=== PATIENT | female | born 2000 | race Caucasian/White ===

== ENCOUNTER 2022-09-16 10:41 | Emergency (ER) | payer BC ==
[2022-09-16 14:39] LABS: CARBON DIOXIDE,CO2 24.4 mmol/L (21.0-32.0); POTASSIUM,K 3.6 mmol/L (3.5-5.1)
== END 2022-09-16 16:37 | disposition home or self-care (01) ==
LOC: MW.ED 10:41
DX: O03.9 Complete or unspecified spontaneous abortion without complication (principal)
CPT/HCPCS: 36415; 76817; 76817-26; 80053; 84702; 85025; 85610; 86850; 86900; 86901; 99284; J2790

== ENCOUNTER 2023-08-08 12:23 | Inpatient (IN) | payer BC ==
[2023-08-08] MEDS ORDERED: Misoprostol 200 MCG Tab PO PRN (12:29)
[2023-08-08] MEDS ORDERED: Tranexamic Acid IN NACL,ISO-OS 1,000 MG in Premix Bag 1 BAG IV PRN ×2 (12:29)
[2023-08-08] MEDS ORDERED: Terbutaline 1 MG/ML SDV SUBCUT PRN (12:29)
[2023-08-08] MEDS ORDERED: Sodium Chloride 0.9% 10 ML Syringe FLUSH PRN (12:29)
[2023-08-08] MEDS ORDERED: Methylergonovine 0.2 MG/1 ML Amp IM PRN (12:29)
[2023-08-08] MEDS ORDERED: Water For Irrigation,Sterile 1,000 ML Container IRR PRN (12:29)
[2023-08-08] MEDS ORDERED: Lidocaine 1% 50 ML MDV INJECT PRN (12:29)
[2023-08-08] MEDS ORDERED: Sodium Chloride 0.9% 2.5 ML Syringe FLUSH PRN (12:29)
[2023-08-08] MEDS ORDERED: Ondansetron 4 MG/2 ML SDV IVPUSH PRN (12:29)
[2023-08-08] MEDS ORDERED: Carboprost Tromethamine 250 MCG/1 mL Vial IM PRN (12:29)
[2023-08-08] MEDS ORDERED: Sodium Chloride 0.9% 20 ML SDV IV PRN (12:29)
[2023-08-08] MEDS ORDERED: Oxytocin/0.9 % Sodium Chloride 30 UNIT/500 ML BAG IV SCH ×2 (12:30)
[2023-08-08] MEDS ORDERED: Insulin Regular in 0.9 % NACL 100 ML IV SCH (12:45)
[2023-08-08] MEDS ORDERED: Dextrose 5%-Lactated Ringers 1,000 ML IV SCH (12:45)
[2023-08-08] MEDS ORDERED: ePHEDrine 50 MG/ML SDV IVPUSH PRN ×2 (12:51)
[2023-08-08] MEDS ORDERED: Phenylephrine HCl 0.5 MG/5 ML AMP IVPUSH PRN (12:51)
[2023-08-08 12:54] LABS: HEMATOCRIT 40.3 % (36.0-46.0); HEMOGLOBIN 13.6 g/dL (12.0-16.0); MEAN CORPUSCULAR HEMOGLOBIN 29.9 pg (27.0-32.0); MEAN CORPUSCULAR HGB CONC 33.7 g/dL (31.0-37.0); MEAN CORPUSCULAR VOLUME 88.6 fL (80.0-98.0); MEAN PLATELET VOLUME 13.3 fL (7.40-12.00); RED BLOOD CELL COUNT 4.55 M/uL (4.30-5.90); WHITE BLOOD CELL COUNT,WBC 7.96 K/uL (4.0-11.0)
[2023-08-08] MEDS ORDERED: Ropivacaine HCl/PF 400 MG in Premix Bag 1 BAG EPIDUR SCH (13:00)
[2023-08-08] MEDS: Misoprostol 25 MCG (1/4 of 100 MCG) Tab VAG PRN ×3 (13:09→23:30)
[2023-08-09] MEDS: Lactated Ringers 1,000 ML IV SCH ×2 (08:03→12:21)
[2023-08-09] MEDS ORDERED: Methylergonovine 0.2 MG/1 ML Amp IM PRN (15:29)
[2023-08-09] MEDS ORDERED: Acetaminophen 500 MG Tab PO PRN (15:29)
[2023-08-09] MEDS ORDERED: Lanolin 100% Cream 7 GM Tube TOP PRN (15:29)
[2023-08-09] MEDS ORDERED: Tranexamic Acid IN NACL,ISO-OS 1,000 MG in Premix Bag 1 BAG IV PRN ×2 (15:29)
[2023-08-09] MEDS ORDERED: Bisacodyl 10 MG Supp RECTAL PRN (15:29)
[2023-08-09] MEDS ORDERED: Witch Hazel Medicated Pads 40/Jar TOP PRN (15:29)
[2023-08-09] MEDS ORDERED: Benzocaine/Menthol 20%-0.5% Spray 78 GM Cannister TOP PRN (15:29)
[2023-08-09] MEDS ORDERED: Ibuprofen 400 MG Tab PO PRN (15:29)
[2023-08-09 18:04] LABS: PH,UMBILICAL ARTERIAL 7.258 (7.18-7.38); PH,UMBILICAL VENOUS 7.32 (7.25-7.45)
[2023-08-09] MEDS: Ibuprofen 800 MG Tab PO PRN (18:34)
[2023-08-09] MEDS: Acetaminophen 500 MG Tab PO PRN ×2 (18:34→23:13)
[2023-08-09] MEDS: Docusate Sodium 100 MG Cap PO PRN (18:34)
[2023-08-10] MEDS: Ibuprofen 800 MG Tab PO PRN ×2 (04:33→10:44)
[2023-08-10 06:41] LABS: HEMATOCRIT 34.8 % (36.0-46.0); HEMOGLOBIN 11.6 g/dL (12.0-16.0)
[2023-08-10 06:59] LABS: CALCIUM 8.2 mg/dL (8.5-10.1); CREATININE 0.7 mg/dL (0.6-1.0); EST CRCL DRUG DOSING (CG) 120.51 mL/min; POTASSIUM,K 3.8 mmol/L (3.5-5.1)
[2023-08-10] MEDS: Acetaminophen 500 MG Tab PO PRN ×2 (07:53→17:16)
[2023-08-10] MEDS: Docusate Sodium 100 MG Cap PO PRN (10:48)
== END 2023-08-10 21:00 | disposition home or self-care (01) | DRG 560 ==
LOC: MW.OB 12:23 → OBSVTOIN 15:05 → MW.OB 08-09 20:13
PROVIDERS: ADMIT Obstetrics & Gynecology; ATTEND Obstetrics & Gynecology
PROC: 10E0XZZ Delivery of Products of Conception, External Approach (ICD-10-PCS; principal; 2023-08-08)
PROC: 10907ZC Drainage of Amniotic Fluid, Therapeutic from Products of Conception, Via Natural or Artificial Opening (ICD-10-PCS; 2023-08-08)
PROC: 3E033VJ Introduction of Other Hormone into Peripheral Vein, Percutaneous Approach (ICD-10-PCS; 2023-08-08)
PROC: 3E0R3BZ Introduction of Anesthetic Agent into Spinal Canal, Percutaneous Approach (ICD-10-PCS; 2023-08-08)
PROC: 00HU33Z Insertion of Infusion Device into Spinal Canal, Percutaneous Approach (ICD-10-PCS; 2023-08-08)
PROC: 3E0P7VZ Introduction of Hormone into Female Reproductive, Via Natural or Artificial Opening (ICD-10-PCS; 2023-08-08)
PROC: 0HQ9XZZ Repair Perineum Skin, External Approach (ICD-10-PCS; 2023-08-08)
PROC: 3E0334Z Introduction of Serum, Toxoid and Vaccine into Peripheral Vein, Percutaneous Approach (ICD-10-PCS; 2023-08-09)
DX: O24.424 Gestational diabetes mellitus in childbirth, insulin controlled (principal); O70.0 First degree perineal laceration during delivery; Z37.0 Single live birth; Z3A.39 39 weeks gestation of pregnancy; O36.0930 Maternal care for other rhesus isoimmunization, third trimester, not applicable or unspecified; O99.62 Diseases of the digestive system complicating childbirth; K80.50 Calculus of bile duct without cholangitis or cholecystitis without obstruction
CPT/HCPCS: 36415; 51702; 59025; 59409; 80048; 82803; 82947; 85014; 85018; 85027; 85460; 86592; 86850; 86900; 86901; A9270-GY; J2590; J2790; J7120

== ENCOUNTER 2025-03-18 00:11 | Inpatient (IN) | payer BC ==
[2025-03-18] MEDS ORDERED: Sodium Chloride 0.9% 20 ML SDV IV PRN (00:39)
[2025-03-18] MEDS ORDERED: Misoprostol 200 MCG Tab RECTAL PRN ×2 (00:39→11:35)
[2025-03-18] MEDS ORDERED: Carboprost Tromethamine 250 MCG/1 mL Vial IM PRN (00:39)
[2025-03-18] MEDS ORDERED: Butorphanol 1 MG/ML SDV IVPUSH PRN (00:39)
[2025-03-18] MEDS ORDERED: Water For Irrigation,Sterile 1,000 ML Container IRR PRN (00:39)
[2025-03-18] MEDS ORDERED: Methylergonovine 0.2 MG/1 ML Amp IM PRN ×2 (00:39→11:35)
[2025-03-18] MEDS ORDERED: Terbutaline 1 MG/ML SDV SUBCUT PRN (00:39)
[2025-03-18] MEDS ORDERED: Lidocaine 1% 50 ML MDV INJECT PRN (00:39)
[2025-03-18] MEDS ORDERED: Sodium Chloride 0.9% 10 ML Syringe FLUSH PRN (00:39)
[2025-03-18] MEDS ORDERED: Sodium Chloride 0.9% 2.5 ML Syringe FLUSH PRN (00:39)
[2025-03-18] MEDS ORDERED: Oxytocin/0.9 % Sodium Chloride 30 UNIT/500 ML BAG IV SCH ×2 (00:45→11:45)
[2025-03-18] MEDS ORDERED: Tranexamic Acid in NACL,ISO-OS 1,000 MG in Premix Bag 1 BAG IV PRN (00:49)
[2025-03-18] MEDS ORDERED: Glucagon,Human Recombinant 1 MG Vial IM PRN (00:51)
[2025-03-18] MEDS ORDERED: 50% Dextrose in Water 50 ML Syringe IVPUSH PRN (00:51)
[2025-03-18] MEDS ORDERED: Dextrose 5%-0.9% NaCl 1,000 ML IV SCH (01:00)
[2025-03-18] MEDS ORDERED: Insulin Regular in 0.9 % NACL 100 ML IV SCH (01:00)
[2025-03-18 01:52] LABS: HEMATOCRIT 36.7 % (37.0-47.0); MEAN CORPUSCULAR HGB CONC 35.4 g/dL (32.0-36.0); MEAN CORPUSCULAR VOLUME 87.6 fL (83.0-99.0); MEAN PLATELET VOLUME 12.6 fL (9.4-12.3); PLATELET COUNT,PLT 165 K/uL (150-400); RED BLOOD CELL COUNT 4.19 M/uL (4.10-5.30); WHITE BLOOD CELL COUNT,WBC 8.36 K/uL (3.9-11.3)
[2025-03-18] MEDS: Lactated Ringers 1,000 ML IV SCH (01:55)
[2025-03-18] MEDS: Ampicillin 2 GM in Sodium Chloride 0.9% 100 ML IV ONE (01:56)
[2025-03-18] MEDS: Misoprostol 25 MCG (1/4 of 100 MCG) Tab VAG PRN ×2 (01:57→06:22)
[2025-03-18] MEDS ORDERED: ePHEDrine 50 MG/ML SDV IVPUSH PRN (04:38)
[2025-03-18] MEDS ORDERED: Phenylephrine HCl In 0.9% NaCl 1 MG/10 ML Syringe IVPUSH PRN (04:38)
[2025-03-18] MEDS ORDERED: dexmedeTOMIDine HCl 200 MCG/2 ML SDV EPIDUR SCH (04:45)
[2025-03-18] MEDS: Ampicillin 1 GM in Sodium Chloride 0.9% 50 ML IV SCH (06:21)
[2025-03-18] MEDS: Oxytocin/0.9 % Sodium Chloride 30 UNIT/500 ML BAG IV SCH (06:58)
[2025-03-18] MEDS: Ropivacaine HCl/PF 400 MG in Premix Bag 1 BAG EPIDUR SCH (09:31)
[2025-03-18] MEDS: Ondansetron 4 MG/2 ML SDV IVPUSH PRN (10:38)
[2025-03-18 12:31] LABS: PH,UMBILICAL ARTERIAL 7.27 (7.18-7.38); PH,UMBILICAL VENOUS 7.34 (7.25-7.45)
[2025-03-18] MEDS: Acetaminophen 500 MG Tab PO PRN (13:07)
[2025-03-18] MEDS: Benzocaine/Menthol 20%-0.5% Spray 78 GM Cannister TOP PRN (13:07)
[2025-03-18] MEDS: Witch Hazel Medicated Pads 40/Jar TOP PRN (13:07)
[2025-03-18] MEDS: Lanolin 100% Cream 7 GM Tube TOP PRN (13:07)
[2025-03-18] MEDS: Docusate Sodium 100 MG Cap PO PRN (13:07)
[2025-03-18] MEDS: Ibuprofen 800 MG Tab PO PRN (17:06)
[2025-03-19 05:47] LABS: HEMATOCRIT 33.5 % (37.0-47.0); HEMOGLOBIN 11.6 g/dL (12.0-16.0)
== END 2025-03-19 15:20 | disposition home or self-care (01) | DRG 560 ==
LOC: MW.OB 00:11 → OBSVTOIN 11:35 → MW.OB 14:11
PROVIDERS: ADMIT Obstetrics & Gynecology; ATTEND Obstetrics & Gynecology
PROC: 10E0XZZ Delivery of Products of Conception, External Approach (ICD-10-PCS; principal; 2025-03-18)
PROC: 3E0DXGC Introduction of Other Therapeutic Substance into Mouth and Pharynx, External Approach (ICD-10-PCS; 2025-03-18)
PROC: 3E033VJ Introduction of Other Hormone into Peripheral Vein, Percutaneous Approach (ICD-10-PCS; 2025-03-18)
PROC: 10907ZC Drainage of Amniotic Fluid, Therapeutic from Products of Conception, Via Natural or Artificial Opening (ICD-10-PCS; 2025-03-18)
DX: O24.420 Gestational diabetes mellitus in childbirth, diet controlled (principal); O99.824 Streptococcus B carrier state complicating childbirth; O99.284 Endocrine, nutritional and metabolic diseases complicating childbirth; Z3A.39 39 weeks gestation of pregnancy; Z37.0 Single live birth; Z79.4 Long term (current) use of insulin; Z79.899 Other long term (current) drug therapy; E03.9 Hypothyroidism, unspecified
CPT/HCPCS: 01967; 36415; 59025; 59409; 82803; 82947; 85014; 85018; 85027; 86592; 86850; 86900; 86901; A9270-GY; J0290; J2405; J2590; J2795; J7120

== ENCOUNTER 2025-05-15 21:06 | Emergency (ER) | payer BC ==
[2025-05-15] MEDS: Sodium Chloride 0.9% 1,000 ML IV ONE (21:36)
[2025-05-15] MEDS: Ondansetron 4 MG/2 ML SDV IVPUSH ONE (21:36)
[2025-05-15 21:51] LABS: BASOPHILS ABSOLUTE AUTO 0.03 K/uL (0.00-0.20); BASOPHILS PERCENT AUTO 0.5 % (0.0-1.0); EOSINOPHILS ABSOLUTE AUTO 0.18 K/uL (0.00-0.45); EOSINOPHILS PERCENT AUTO 2.8 % (0.0-6.0); HEMATOCRIT 39.3 % (37.0-47.0); HEMOGLOBIN 13.4 g/dL (12.0-16.0); IMMATURE GRAN ABSOLUTE AUTO 0.01 K/uL (0.00-0.05); IMMATURE GRAN PERCENT AUTO 0.2 % (0.0-0.4); LYMPHOCYTES ABSOLUTE AUTO 2.87 K/uL (1.00-4.80); LYMPHOCYTES PERCENT AUTO 45.1 % (24.0-44.0); MEAN CORPUSCULAR HEMOGLOBIN 29.5 pg (28.0-32.0); MEAN CORPUSCULAR HGB CONC 34.1 g/dL (32.0-36.0); MEAN CORPUSCULAR VOLUME 86.6 fL (83.0-99.0); MEAN PLATELET VOLUME 11.7 fL (9.4-12.3); MONOCYTES ABSOLUTE AUTO 0.51 K/uL (0.00-0.80); NEUTROPHILS ABSOLUTE AUTO 2.76 K/uL (1.80-7.70); NEUTROPHILS PERCENT AUTO 43.4 % (41.0-71.0); PLATELET COUNT,PLT 221 K/uL (150-400); RED BLOOD CELL COUNT 4.54 M/uL (4.10-5.30); WHITE BLOOD CELL COUNT,WBC 6.36 K/uL (3.9-11.3)
[2025-05-15 22:07] LABS: A/G RATIO 1.3 (0.9-1.6); BILIRUBIN TOTAL 0.2 mg/dL (0.2-1.0); CARBON DIOXIDE,CO2 32.1 mmol/L (21.0-32.0); CREATININE 0.8 mg/dL (0.6-1.0); EST CRCL DRUG DOSING (CG) 103.63 mL/min; MAGNESIUM 1.9 mg/dL (1.8-2.4); POTASSIUM,K 3.4 mmol/L (3.5-5.1)
[2025-05-15] MEDS: Alum Hydrox/Mag Hydrox/Simeth 15 ML, Metoclopramide 5 MG, Lidocaine 2% 5 ML PO ONE (22:24)
[2025-05-15] MEDS: Ketorolac 30 MG/ML SDV IVPUSH ONE (22:25)
== END 2025-05-15 23:20 | disposition home or self-care (01) ==
LOC: MW.ED 21:06
DX: K80.50 Calculus of bile duct without cholangitis or cholecystitis without obstruction (principal); K21.9 Gastro-esophageal reflux disease without esophagitis; E03.9 Hypothyroidism, unspecified; Z79.890 Hormone replacement therapy; Z79.899 Other long term (current) drug therapy
CPT/HCPCS: 36415; 76705; 80053; 83690; 83735; 84703; 85025; 96361; 96374; 96375; 99284; A9270; J1885; J2405; J7030; 99283